=== PATIENT | male | born 1965 | race Caucasian/White ===

== ENCOUNTER 2017-01-19 10:07 | Emergency (ER) | payer MEDICARE ==
[~2017-01-19] VITALS: Ht 172.7 cm; Wt 86.0 kg
[2017-01-19] MEDS ORDERED: METHOCARBAMOL 750 MG TABLET PO ONE (11:30)
[2017-01-19] MEDS ORDERED: SODIUM CHLORIDE FLUSH 10ML SYR IVF ONE (11:30)
[2017-01-19] MEDS ORDERED: KETOROLAC 30 MG/1 ML IVPush ONE (11:30)
[2017-01-19] MEDS ORDERED: HYDROmorphone 1 MG/ML, 1ML IVPush PRN (11:30)
[2017-01-19] MEDS ORDERED: DIAZEPAM 5 MG TABLET PO ONE (11:30)
[2017-01-19] MEDS ORDERED: DIAZEPAM 5 MG TABLET ONE (11:40)
[2017-01-19] MEDS ORDERED: METHOCARBAMOL 750 MG TABLET ONE (11:40)
[2017-01-19 11:50] VITALS: BP 126/90
== END 2017-01-19 12:53 | disposition left against medical advice (07) ==
LOC: ED 10:23
DX: S39.012A Strain of muscle, fascia and tendon of lower back, initial encounter (principal); E11.9 Type 2 diabetes mellitus without complications; G89.29 Other chronic pain; M54.5 Low back pain; X50.0XXA Overexertion from strenuous movement or load, initial encounter; Y93.89 Activity, other specified; Y92.092 Bedroom in other non-institutional residence as the place of occurrence of the external cause; Y99.8 Other external cause status
CPT/HCPCS: 99284; J7512

== ENCOUNTER 2017-05-08 07:52 | Inpatient (IN) | payer MEDICARE ==
[~2017-05-08] VITALS: Ht 177.8 cm; Wt 76.1 kg
[2017-05-08] MEDS ORDERED: SODIUM CHLORIDE 0.9% 1,000ML IVBOLUS ONE ×2 (08:30→10:00)
[2017-05-08 08:54] LABS: HEMOGLOBIN 20.3 g/dL (13.7-18.0); WHITE BLOOD COUNT 40.2 x10^3/uL (3.4-10)
[2017-05-08 09:06] LABS: DIFF TOTAL CELLS COUNTED 100 CELL DIFF
[2017-05-08 09:39] LABS: VERIFY COUNTS? YES
[2017-05-08 09:56] LABS: BLOOD UREA NITROGEN 24 mg/dL (7-18)
[2017-05-08] MEDS ORDERED: SODIUM CHLORIDE 0.9%, 500ML IVBOLUS ONE (10:00)
[2017-05-08] MEDS ORDERED: CEFTRIAXONE PMX 2GM/50ML 50 ML IV SCH (10:00)
[2017-05-08 10:04] LABS: ACETAMINOPHEN < 2 mcg/mL (10-30); ASPARTATE AMINO TRANSFERASE 976 U/L (15-37)
[2017-05-08] MEDS ORDERED: SODIUM POLYSTYRENE SULFONATE ORAL SUSP ONE (10:18)
[2017-05-08] MEDS ORDERED: CEFTRIAXONE PMX 2GM/50ML 50 ML ONE (10:19)
[2017-05-08] MEDS ORDERED: DEXTROSE 50%, 50ML SYRINGE ONE (10:19)
[2017-05-08] MEDS ORDERED: CALCIUM CHLORIDE 10%, 10ML SYR ONE (10:19)
[2017-05-08] MEDS ORDERED: INSULIN REGULAR 100 UNITS/ML, 3ML VIAL ONE (10:20)
[2017-05-08] MEDS ORDERED: CALCIUM CHLORIDE 10%, 10ML SYR IVPush ONE (10:30)
[2017-05-08] MEDS ORDERED: CEFTRIAXONE PMX 2GM/50ML 50 ML IV ONE (10:30)
[2017-05-08] MEDS ORDERED: INSULIN REGULAR 100 UNITS/ML, 3ML VIAL IVPush ONE (10:30)
[2017-05-08] MEDS ORDERED: SODIUM POLY SULFONATE UDC 15 GM/60 ML PO ONE (10:30)
[2017-05-08] MEDS ORDERED: DEXTROSE 50%, 50ML SYRINGE IVPush ONE (10:30)
[2017-05-08] MEDS ORDERED: SODIUM BICARBONATE 8.4% 150 MEQ in DEXTROSE 5% 1,000 ML IV ONE (10:44)
[2017-05-08 11:20] VITALS: BP 155/101
[2017-05-08 11:44] LABS: ABG COLLECTION SITE RIGHT RADIAL; COLLATERAL CIRCULATION TESTING NORMAL
[2017-05-08 11:53] LABS: HEMATOCRIT 49.3 % (39.2-51.8); HEMOGLOBIN 16.9 g/dL (13.7-18.0); WHITE BLOOD COUNT 31.6 x10^3/uL (3.4-10)
[2017-05-08 11:55] LABS: BLOOD UREA NITROGEN 24 mg/dL (7-18)
[2017-05-08 12:14] LABS: DIFF TOTAL CELLS COUNTED 100 CELL DIFF
[2017-05-08 12:16] LABS: VERIFY COUNTS? YES
[2017-05-08] MEDS ORDERED: CALCIUM GLUCONATE 4.6 MEQ in SODIUM CHLORIDE 0.9% 50 ML IV ONE (12:30)
[2017-05-08 12:41] LABS: DAU SCREEN DISCLAIMER
[2017-05-08] MEDS ORDERED: CYCL5TAB PO (13:39)
[2017-05-08] MEDS ORDERED: MORP30TA3 PO (14:08)
[2017-05-08] MEDS ORDERED: QUET100T PO (14:08)
[2017-05-08] MEDS ORDERED: CLIN300C8 PO (14:08)
[2017-05-08] MEDS ORDERED: FENO160T PO (14:08)
[2017-05-08] MEDS ORDERED: DIAZ5TAB4 PO (14:08)
[2017-05-08] MEDS ORDERED: ACET-709 PO (14:08)
[2017-05-08] MEDS ORDERED: TRAZ150T62 PO (14:08)
[2017-05-08] MEDS ORDERED: VALA500T PO (14:08)
[2017-05-08] MEDS ORDERED: CITA40TA5 PO (14:08)
[2017-05-08] MEDS ORDERED: ATOR-2 PO (14:08)
[2017-05-08] MEDS ORDERED: DEXTROSE 4 GM TAB.CHEW PO PRN (15:00)
[2017-05-08] MEDS ORDERED: DEXTROSE 50%, 50ML SYRINGE IVPush PRN (15:00)
[2017-05-08] MEDS ORDERED: GLUCAGON 1 MG IM PRN (15:00)
[2017-05-08 15:32] VITALS: BP 141/93
[2017-05-08 15:37] LABS: BLOOD UREA NITROGEN 29 mg/dL (7-18)
[2017-05-08 15:45] LABS: ASPARTATE AMINO TRANSFERASE 1448 U/L (15-37)
[2017-05-08 15:50] LABS: ABG COLLECTION SITE LEFT RADIAL; COLLATERAL CIRCULATION TESTING NORMAL
[2017-05-08] MEDS: INSULIN ASPART 100 UNITS/ML, PEN SQ-INSULIN SCH ×2 (16:52→20:31)
[2017-05-08 20:15] VITALS: BP 139/96
[2017-05-08] MEDS: METRONIDAZOLE PMX 500MG/100ML 100 ML IV SCH (20:30)
[2017-05-08] MEDS: SODIUM CHLORIDE FLUSH 10ML SYR IVF SCH (20:41)
[2017-05-09 02:27] VITALS: BP 142/97
[2017-05-09 03:19] LABS: HEMATOCRIT 54.7 % (39.2-51.8); HEMOGLOBIN 18.5 g/dL (13.7-18.0); WHITE BLOOD COUNT 28.1 x10^3/uL (3.4-10)
[2017-05-09 03:29] LABS: BLOOD UREA NITROGEN 27 mg/dL (7-18)
[2017-05-09 03:43] LABS: DIFF TOTAL CELLS COUNTED 100 CELL DIFF
[2017-05-09 03:44] LABS: VERIFY COUNTS? YES
[2017-05-09 03:55] LABS: ASPARTATE AMINO TRANSFERASE 1488 U/L (15-37)
[2017-05-09] MEDS: METRONIDAZOLE PMX 500MG/100ML 100 ML IV SCH ×3 (04:03→21:02)
[2017-05-09 06:32] VITALS: BP 153/99
[2017-05-09] MEDS ORDERED: SODIUM BICARBONATE 8.4% 150 MEQ in DEXTROSE 5% 1,000 ML IV SCH (08:30)
[2017-05-09] MEDS: INSULIN ASPART 100 UNITS/ML, PEN SQ-INSULIN SCH ×4 (08:44→21:02)
[2017-05-09] MEDS: SODIUM CHLORIDE FLUSH 10ML SYR IVF SCH ×2 (09:00→21:02)
[2017-05-09] MEDS: ERGOCALCIFEROL 50,000 UNIT CAPSULE PO SCH (09:00)
[2017-05-09] MEDS ORDERED: D5%-0.9% NACL 1,000 ML IV SCH (09:30)
[2017-05-09 10:05] LABS: HEP B SURF. AB < 3.1 mIU/mL (0.0-10.0)
[2017-05-09] MEDS ORDERED: CEFTRIAXONE PMX 1GM/50ML 50 ML IV SCH (10:30)
[2017-05-09] MEDS: HEPARIN 5,000 UNITS/ML, 1ML SQ SCH ×2 (13:35→21:01)
[2017-05-09] MEDS: D5%-0.45% NACL 1,000 ML IV SCH (13:35)
[2017-05-09] MEDS: CEFTRIAXONE 1,000 MG in SODIUM CHLORIDE 0.9% 50 ML IVPB SCH (13:35)
[2017-05-09 14:25] VITALS: BP 147/95
[2017-05-09] MEDS: NICOTINE 14MG/24 HR PATCH.TD24 TD SCH (14:34)
[2017-05-09 17:36] LABS: BLOOD UREA NITROGEN 24 mg/dL (7-18)
[2017-05-09 19:30] VITALS: BP 139/93
[2017-05-10 00:11] VITALS: BP 150/98
[2017-05-10] MEDS: HEPARIN 5,000 UNITS/ML, 1ML SQ SCH ×4 (04:10→22:48)
[2017-05-10] MEDS: METRONIDAZOLE PMX 500MG/100ML 100 ML IV SCH ×2 (04:10→17:40)
[2017-05-10 04:17] LABS: HEMATOCRIT 48.3 % (39.2-51.8); HEMOGLOBIN 16.5 g/dL (13.7-18.0); WHITE BLOOD COUNT 21.9 x10^3/uL (3.4-10)
[2017-05-10 04:26] LABS: BLOOD UREA NITROGEN 34 mg/dL (7-18)
[2017-05-10 04:52] LABS: ASPARTATE AMINO TRANSFERASE 1009 U/L (15-37)
[2017-05-10 06:40] VITALS: BP 159/107
[2017-05-10] MEDS: D5%-0.45% NACL 1,000 ML IV SCH (07:38)
[2017-05-10] MEDS: SODIUM CHLORIDE FLUSH 10ML SYR IVF SCH ×2 (08:17→22:48)
[2017-05-10] MEDS: INSULIN ASPART 100 UNITS/ML, PEN SQ-INSULIN SCH ×3 (08:17→16:00)
[2017-05-10] MEDS ORDERED: D5%-0.9% NACL 1,000 ML IV SCH (09:30)
[2017-05-10] MEDS: NICOTINE 14MG/24 HR PATCH.TD24 TD SCH (16:58)
[2017-05-10] MEDS: CEFTRIAXONE 1,000 MG in SODIUM CHLORIDE 0.9% 50 ML IVPB SCH (16:58)
[2017-05-10 18:38] VITALS: BP 158/113
[2017-05-10] MEDS ORDERED: INSULIN DETEMIR 100 UNITS/ML, PEN SQ-INSULIN SCH (21:00)
[2017-05-11 00:36] VITALS: BP 161/98
[2017-05-11] MEDS: METRONIDAZOLE PMX 500MG/100ML 100 ML IV SCH ×3 (01:33→18:31)
[2017-05-11] MEDS: D5%-0.45% NACL 1,000 ML IV SCH (05:21)
[2017-05-11] MEDS: HEPARIN 5,000 UNITS/ML, 1ML SQ SCH ×3 (05:21→22:37)
[2017-05-11 05:37] LABS: BLOOD UREA NITROGEN 39 mg/dL (7-18)
[2017-05-11 05:38] LABS: HEMOGLOBIN 14.6 g/dL (13.7-18.0); WHITE BLOOD COUNT 16.5 x10^3/uL (3.4-10)
[2017-05-11 06:08] LABS: ASPARTATE AMINO TRANSFERASE 831 U/L (15-37)
[2017-05-11 06:34] VITALS: BP 151/95
[2017-05-11] MEDS: SODIUM CHLORIDE FLUSH 10ML SYR IVF SCH ×2 (09:19→22:37)
[2017-05-11] MEDS: INSULIN ASPART 100 UNITS/ML, PEN SQ-INSULIN SCH ×4 (09:19→21:00)
[2017-05-11] MEDS ORDERED: LORazepam 2 MG/ML, 1ML IV PRN ×2 (11:00)
[2017-05-11 12:31] VITALS: BP 164/99
[2017-05-11] MEDS: NICOTINE 14MG/24 HR PATCH.TD24 TD SCH (15:29)
[2017-05-11] MEDS: CEFTRIAXONE 1,000 MG in SODIUM CHLORIDE 0.9% 50 ML IVPB SCH (17:21)
[2017-05-11 18:32] VITALS: BP 173/96
[2017-05-11] MEDS ORDERED: MAALOX/HYOSCYAMINE/LIDOCAINE 45 ML BTL PO ONE (22:00)
[2017-05-12] MEDS: METRONIDAZOLE PMX 500MG/100ML 100 ML IV SCH ×2 (00:36→08:19)
[2017-05-12 01:01] VITALS: BP 152/90
[2017-05-12 03:24] LABS: HEMATOCRIT 39.2 % (39.2-51.8); HEMOGLOBIN 13.5 g/dL (13.7-18.0); WHITE BLOOD COUNT 11.1 x10^3/uL (3.4-10)
[2017-05-12] MEDS: LORazepam 2 MG/ML, 1ML IV PRN ×4 (03:33→17:31)
[2017-05-12 03:35] LABS: BLOOD UREA NITROGEN 63 mg/dL (7-18)
[2017-05-12 04:03] LABS: ASPARTATE AMINO TRANSFERASE 1266 U/L (15-37)
[2017-05-12] MEDS: HEPARIN 5,000 UNITS/ML, 1ML SQ SCH ×3 (06:19→22:30)
[2017-05-12 06:42] VITALS: BP 169/97
[2017-05-12] MEDS: INSULIN ASPART 100 UNITS/ML, PEN SQ-INSULIN SCH ×4 (07:00→20:24)
[2017-05-12] MEDS: SODIUM CHLORIDE FLUSH 10ML SYR IVF SCH (08:20)
[2017-05-12] MEDS: ERGOCALCIFEROL 50,000 UNIT CAPSULE PO SCH (08:21)
[2017-05-12] MEDS ORDERED: MAGNESIUM CITRATE 300ML ORAL SOL PO PRN (12:00)
[2017-05-12 12:38] VITALS: BP 172/104
[2017-05-12] MEDS: NICOTINE 14MG/24 HR PATCH.TD24 TD SCH (12:49)
[2017-05-12] MEDS: AMLODIPINE 2.5 MG TABLET PO SCH (17:31)
[2017-05-12 19:26] VITALS: BP 159/100
[2017-05-13] MEDS: LORazepam 2 MG/ML, 1ML IV PRN ×3 (01:15→13:33)
[2017-05-13] MEDS: SODIUM CHLORIDE FLUSH 10ML SYR IVF SCH ×3 (01:15→21:37)
[2017-05-13 02:00] VITALS: BP 162/89
[2017-05-13 05:00] LABS: HEMATOCRIT 37.1 % (39.2-51.8); HEMOGLOBIN 12.7 g/dL (13.7-18.0); WHITE BLOOD COUNT 9.5 x10^3/uL (3.4-10)
[2017-05-13 05:03] LABS: ASPARTATE AMINO TRANSFERASE 739 U/L (15-37); BLOOD UREA NITROGEN 44 mg/dL (7-18)
[2017-05-13] MEDS: HEPARIN 5,000 UNITS/ML, 1ML SQ SCH ×3 (05:21→21:36)
[2017-05-13 06:52] VITALS: BP 160/95
[2017-05-13] MEDS: INSULIN ASPART 100 UNITS/ML, PEN SQ-INSULIN SCH ×4 (07:00→21:37)
[2017-05-13] MEDS: AMLODIPINE 2.5 MG TABLET PO SCH ×2 (09:00→15:31)
[2017-05-13] MEDS ORDERED: DIPHENHYDRAMINE 50 MG/ML, 1ML ONE (11:15)
[2017-05-13] MEDS ORDERED: DIPHENHYDRAMINE 50 MG/ML, 1ML IVPush ONE (11:30)
[2017-05-13 12:29] VITALS: BP 173/111
[2017-05-13] MEDS: NICOTINE 14MG/24 HR PATCH.TD24 TD SCH (13:33)
[2017-05-13] MEDS: BISACODYL 10 MG SUPP PR PRN (18:15)
[2017-05-13 20:00] VITALS: BP 146/91
[2017-05-14] MEDS: LORazepam 2 MG/ML, 1ML IV PRN ×3 (00:38→23:39)
[2017-05-14 02:00] VITALS: BP 158/92
[2017-05-14] MEDS: HEPARIN 5,000 UNITS/ML, 1ML SQ SCH ×3 (05:32→20:50)
[2017-05-14 05:41] LABS: HEMATOCRIT 35.3 % (39.2-51.8); HEMOGLOBIN 12.1 g/dL (13.7-18.0); WHITE BLOOD COUNT 9.4 x10^3/uL (3.4-10)
[2017-05-14 06:10] LABS: ASPARTATE AMINO TRANSFERASE 475 U/L (15-37); BLOOD UREA NITROGEN 37 mg/dL (7-18)
[2017-05-14 06:37] VITALS: BP 157/88
[2017-05-14] MEDS: INSULIN ASPART 100 UNITS/ML, PEN SQ-INSULIN SCH ×4 (07:00→20:43)
[2017-05-14] MEDS: SODIUM CHLORIDE FLUSH 10ML SYR IVF SCH ×2 (09:00→20:50)
[2017-05-14 12:25] VITALS: BP 147/85
[2017-05-14] MEDS: NICOTINE 14MG/24 HR PATCH.TD24 TD SCH (13:14)
[2017-05-14 20:54] VITALS: BP 177/92
[2017-05-15 02:00] VITALS: BP 168/100
[2017-05-15 05:39] LABS: HEMATOCRIT 34.2 % (39.2-51.8); HEMOGLOBIN 11.8 g/dL (13.7-18.0); WHITE BLOOD COUNT 9.7 x10^3/uL (3.4-10)
[2017-05-15] MEDS: HEPARIN 5,000 UNITS/ML, 1ML SQ SCH ×3 (05:57→22:03)
[2017-05-15 06:06] LABS: ASPARTATE AMINO TRANSFERASE 346 U/L (15-37); BLOOD UREA NITROGEN 34 mg/dL (7-18)
[2017-05-15] MEDS: INSULIN ASPART 100 UNITS/ML, PEN SQ-INSULIN SCH ×4 (07:22→21:00)
[2017-05-15] MEDS: LORazepam 2 MG/ML, 1ML IV PRN ×3 (07:47→16:00)
[2017-05-15] MEDS: SODIUM CHLORIDE FLUSH 10ML SYR IVF SCH ×2 (08:56→22:02)
[2017-05-15] MEDS: AMLODIPINE 2.5 MG TABLET PO SCH (08:56)
[2017-05-15 12:10] VITALS: BP 155/92
[2017-05-15] MEDS: NICOTINE 14MG/24 HR PATCH.TD24 TD SCH (16:23)
[2017-05-15 19:28] VITALS: BP 176/94
[2017-05-15] MEDS: LORazepam 2 MG/ML, 1ML IVPush PRN (23:31)
[2017-05-16 00:46] VITALS: BP 170/106
[2017-05-16 00:53] VITALS: BP 169/99
[2017-05-16] MEDS: LORazepam 2 MG/ML, 1ML IVPush PRN ×3 (05:15→20:40)
[2017-05-16 05:37] LABS: HEMATOCRIT 32.6 % (39.2-51.8); HEMOGLOBIN 11.2 g/dL (13.7-18.0); WHITE BLOOD COUNT 8.7 x10^3/uL (3.4-10)
[2017-05-16] MEDS: HEPARIN 5,000 UNITS/ML, 1ML SQ SCH ×2 (05:41→15:31)
[2017-05-16 05:42] LABS: ASPARTATE AMINO TRANSFERASE 193 U/L (15-37); BLOOD UREA NITROGEN 30 mg/dL (7-18)
[2017-05-16] MEDS: INSULIN ASPART 100 UNITS/ML, PEN SQ-INSULIN SCH ×4 (07:00→21:00)
[2017-05-16] MEDS ORDERED: DIPHENHYDRAMINE 25 MG CAPSULE ONE ×2 (07:33→23:50)
[2017-05-16] MEDS: DIPHENHYDRAMINE 50 MG CAPSULE PO PRN ×2 (07:35→15:31)
[2017-05-16] MEDS: SODIUM CHLORIDE FLUSH 10ML SYR IVF SCH ×2 (07:39→20:40)
[2017-05-16] MEDS: ERGOCALCIFEROL 50,000 UNIT CAPSULE PO SCH (07:42)
[2017-05-16 07:43] VITALS: BP 162/96
[2017-05-16] MEDS: AMLODIPINE 2.5 MG TABLET PO SCH (12:35)
[2017-05-16] MEDS: NICOTINE 14MG/24 HR PATCH.TD24 TD SCH (12:35)
[2017-05-16 14:45] VITALS: BP 161/101
[2017-05-16 19:01] VITALS: BP 176/95
[2017-05-16] MEDS ORDERED: LORazepam 1MG TABLET ONE (23:50)
[2017-05-17 00:46] VITALS: BP 160/92
[2017-05-17] MEDS: DIPHENHYDRAMINE 50 MG CAPSULE PO PRN ×2 (00:50→15:29)
[2017-05-17] MEDS: LORazepam 2 MG/ML, 1ML IVPush PRN ×4 (00:50→22:47)
[2017-05-17] MEDS: morphine SULFATE 10 MG/ML, 1ML IVPush PRN ×7 (02:19→23:36)
[2017-05-17 06:20] LABS: HEMATOCRIT 31.6 % (39.2-51.8); WHITE BLOOD COUNT 9.2 x10^3/uL (3.4-10)
[2017-05-17 06:26] LABS: ASPARTATE AMINO TRANSFERASE 147 U/L (15-37); BLOOD UREA NITROGEN 27 mg/dL (7-18)
[2017-05-17] MEDS: INSULIN ASPART 100 UNITS/ML, PEN SQ-INSULIN SCH ×4 (07:00→20:25)
[2017-05-17 07:14] VITALS: BP 165/98
[2017-05-17] MEDS: HEPARIN 5,000 UNITS/ML, 1ML SQ SCH ×3 (08:00→16:55)
[2017-05-17] MEDS: AMLODIPINE 2.5 MG TABLET PO SCH (09:00)
[2017-05-17] MEDS: SODIUM CHLORIDE FLUSH 10ML SYR IVF SCH ×2 (09:00→20:19)
[2017-05-17] MEDS: BISACODYL 10 MG SUPP PR PRN (12:03)
[2017-05-17 13:24] VITALS: BP 159/82
[2017-05-17] MEDS: NICOTINE 14MG/24 HR PATCH.TD24 TD SCH (13:26)
[2017-05-17] MEDS ORDERED: HALOPERIDOL 5 MG/ML IV ONE (18:30)
[2017-05-18 01:49] VITALS: BP 174/107
[2017-05-18 05:08] LABS: HEMATOCRIT 34.1 % (39.2-51.8); HEMOGLOBIN 11.7 g/dL (13.7-18.0); WHITE BLOOD COUNT 10.3 x10^3/uL (3.4-10)
[2017-05-18 05:13] LABS: BLOOD UREA NITROGEN 30 mg/dL (7-18)
[2017-05-18 05:33] LABS: ASPARTATE AMINO TRANSFERASE 109 U/L (15-37)
[2017-05-18] MEDS: INSULIN ASPART 100 UNITS/ML, PEN SQ-INSULIN SCH ×4 (07:00→21:34)
[2017-05-18 08:45] VITALS: BP 146/100
[2017-05-18] MEDS: HEPARIN 5,000 UNITS/ML, 1ML SQ SCH ×3 (09:04→16:00)
[2017-05-18] MEDS: SODIUM CHLORIDE FLUSH 10ML SYR IVF SCH ×2 (09:05→21:34)
[2017-05-18] MEDS: DIPHENHYDRAMINE 50 MG CAPSULE PO PRN ×2 (10:07→12:52)
[2017-05-18] MEDS: morphine SULFATE 10 MG/ML, 1ML IVPush PRN ×3 (10:07→21:33)
[2017-05-18] MEDS: LORazepam 2 MG/ML, 1ML IVPush PRN (13:49)
[2017-05-18] MEDS: SODIUM CHLORIDE 0.9% 1,000 ML IV SCH (15:12)
[2017-05-18] MEDS: AMLODIPINE 2.5 MG TABLET PO SCH (15:12)
[2017-05-18] MEDS: NICOTINE 14MG/24 HR PATCH.TD24 TD SCH (15:12)
[2017-05-18 16:09] VITALS: BP 150/92
[2017-05-18 21:32] VITALS: BP_SYST 180; BP_SYST 190; BP_DIAS 109; BP_DIAS 117
[2017-05-18] MEDS: ENALAPRILAT 1.25 MG/ML, 2ML IV PRN (21:34)
[2017-05-19] MEDS: HEPARIN 5,000 UNITS/ML, 1ML SQ SCH ×3 (01:10→18:09)
[2017-05-19] MEDS: LORazepam 2 MG/ML, 1ML IVPush PRN ×3 (02:44→22:32)
[2017-05-19 02:48] VITALS: BP 183/103
[2017-05-19] MEDS: ENALAPRILAT 1.25 MG/ML, 2ML IV PRN (02:52)
[2017-05-19] MEDS: morphine SULFATE 10 MG/ML, 1ML IVPush PRN ×3 (03:40→20:10)
[2017-05-19] MEDS: SODIUM CHLORIDE 0.9% 1,000 ML IV SCH ×2 (04:20→22:30)
[2017-05-19 05:39] LABS: BLOOD UREA NITROGEN 23 mg/dL (7-18); HEMATOCRIT 27.1 % (39.2-51.8); HEMOGLOBIN 9.6 g/dL (13.7-18.0); WHITE BLOOD COUNT 11.2 x10^3/uL (3.4-10)
[2017-05-19 06:46] VITALS: BP 150/84
[2017-05-19] MEDS: INSULIN ASPART 100 UNITS/ML, PEN SQ-INSULIN SCH ×4 (07:00→19:56)
[2017-05-19 08:16] LABS: ASPARTATE AMINO TRANSFERASE 91 U/L (15-37)
[2017-05-19] MEDS: SODIUM CHLORIDE FLUSH 10ML SYR IVF SCH ×2 (08:44→20:11)
[2017-05-19] MEDS: ERGOCALCIFEROL 50,000 UNIT CAPSULE PO SCH (09:07)
[2017-05-19] MEDS: AMLODIPINE 2.5 MG TABLET PO SCH (09:07)
[2017-05-19 12:14] VITALS: BP 147/85
[2017-05-19] MEDS: NICOTINE 14MG/24 HR PATCH.TD24 TD SCH (14:59)
[2017-05-19 20:00] VITALS: BP 156/82
[2017-05-19] MEDS: DIPHENHYDRAMINE 50 MG CAPSULE PO PRN (22:32)
[2017-05-20 02:00] VITALS: BP 150/89
[2017-05-20] MEDS: morphine SULFATE 10 MG/ML, 1ML IVPush PRN ×5 (04:04→23:49)
[2017-05-20] MEDS: HEPARIN 5,000 UNITS/ML, 1ML SQ SCH ×3 (04:22→20:29)
[2017-05-20 04:30] LABS: HEMATOCRIT 26.2 % (39.2-51.8); WHITE BLOOD COUNT 9.9 x10^3/uL (3.4-10)
[2017-05-20 05:03] LABS: ASPARTATE AMINO TRANSFERASE 58 U/L (15-37); BLOOD UREA NITROGEN 30 mg/dL (7-18)
[2017-05-20 06:40] VITALS: BP 155/89
[2017-05-20 06:42] VITALS: BP 113/66
[2017-05-20] MEDS: INSULIN ASPART 100 UNITS/ML, PEN SQ-INSULIN SCH ×4 (07:00→20:29)
[2017-05-20] MEDS: SODIUM CHLORIDE FLUSH 10ML SYR IVF SCH ×2 (09:00→20:29)
[2017-05-20] MEDS: AMLODIPINE 5 MG TABLET PO SCH (10:06)
[2017-05-20 12:04] VITALS: BP 158/93
[2017-05-20] MEDS: SODIUM CHLORIDE 0.9% 1,000 ML IV SCH (13:13)
[2017-05-20] MEDS: NICOTINE 14MG/24 HR PATCH.TD24 TD SCH (15:02)
[2017-05-20 20:00] VITALS: BP 142/76
[2017-05-21 02:00] VITALS: BP 158/92
[2017-05-21] MEDS: SODIUM CHLORIDE 0.9% 1,000 ML IV SCH (05:07)
[2017-05-21] MEDS: HEPARIN 5,000 UNITS/ML, 1ML SQ SCH ×3 (05:07→21:45)
[2017-05-21 05:41] LABS: HEMATOCRIT 26.2 % (39.2-51.8); HEMOGLOBIN 9.3 g/dL (13.7-18.0); WHITE BLOOD COUNT 11.4 x10^3/uL (3.4-10)
[2017-05-21 05:43] LABS: ASPARTATE AMINO TRANSFERASE 56 U/L (15-37); BLOOD UREA NITROGEN 22 mg/dL (7-18)
[2017-05-21] MEDS: INSULIN ASPART 100 UNITS/ML, PEN SQ-INSULIN SCH ×7 (07:00→21:00)
[2017-05-21 07:02] VITALS: BP 169/90
[2017-05-21] MEDS: SODIUM CHLORIDE FLUSH 10ML SYR IVF SCH ×2 (09:00→21:45)
[2017-05-21] MEDS: morphine SULFATE 10 MG/ML, 1ML IVPush PRN ×2 (09:46→14:14)
[2017-05-21] MEDS: AMLODIPINE 5 MG TABLET PO SCH (09:46)
[2017-05-21 10:56] VITALS: BP 149/85
[2017-05-21] MEDS: LORazepam 2 MG/ML, 1ML IVPush PRN ×3 (12:15→19:39)
[2017-05-21] MEDS ORDERED: ALBUTEROL SULFATE 2.5 MG/3 ML NPPB PRN (12:30)
[2017-05-21] MEDS ORDERED: ALBUTEROL SULFATE 2.5 MG/3 ML ONE (12:49)
[2017-05-21] MEDS: NICOTINE 14MG/24 HR PATCH.TD24 TD SCH (13:10)
[2017-05-21 13:16] LABS: IS PT STATUS REG ER OR PRE ER? NO
[2017-05-21] MEDS ORDERED: OMNIPAQUE 350 MG/ML, 100ML BOTTLE ONE (14:43)
[2017-05-21 16:00] VITALS: BP 142/92
[2017-05-21 20:00] VITALS: BP 149/86
[2017-05-21] MEDS ORDERED: HALOPERIDOL 5 MG/ML IV ONE (20:30)
[2017-05-22] MEDS: LORazepam 2 MG/ML, 1ML IVPush PRN (01:36)
[2017-05-22 02:00] VITALS: BP 163/89
[2017-05-22] MEDS: morphine SULFATE 10 MG/ML, 1ML IVPush PRN (03:55)
[2017-05-22] MEDS ORDERED: HALOPERIDOL 5 MG/ML IV PRN (05:00)
[2017-05-22 05:09] LABS: HEMATOCRIT 26.1 % (39.2-51.8); HEMOGLOBIN 9.1 g/dL (13.7-18.0); WHITE BLOOD COUNT 10.7 x10^3/uL (3.4-10)
[2017-05-22] MEDS: HEPARIN 5,000 UNITS/ML, 1ML SQ SCH ×3 (05:16→20:49)
[2017-05-22 05:35] LABS: BLOOD UREA NITROGEN 28 mg/dL (7-18)
[2017-05-22 05:41] LABS: ASPARTATE AMINO TRANSFERASE 50 U/L (15-37)
[2017-05-22 06:34] VITALS: BP 138/83
[2017-05-22] MEDS: INSULIN ASPART 100 UNITS/ML, PEN SQ-INSULIN SCH ×4 (07:00→20:49)
[2017-05-22] MEDS: SODIUM CHLORIDE FLUSH 10ML SYR IVF SCH ×2 (09:50→20:48)
[2017-05-22] MEDS: FLUTICASONE NASAL SPRAY 16GM NAS SCH ×2 (09:50→20:48)
[2017-05-22] MEDS ORDERED: CATHFLO-ALTEPLASE 2 MG/2 ML CATHFLUSH ONE (11:00)
[2017-05-22] MEDS: NICOTINE 14MG/24 HR PATCH.TD24 TD SCH (12:25)
[2017-05-22] MEDS: DIPHENHYDRAMINE 50 MG CAPSULE PO PRN (14:13)
[2017-05-22 14:55] VITALS: BP 155/89
[2017-05-22] MEDS ORDERED: METOPROLOL TARTRATE 50 MG TABLET ONE (15:14)
[2017-05-22] MEDS: HALOPERIDOL 5 MG/ML IM PRN (15:18)
[2017-05-22] MEDS: METOPROLOL TARTRATE 50 MG TABLET PO SCH ×2 (15:18→20:48)
[2017-05-22] MEDS: ACETAMINOPHEN 325 MG TABLET PO PRN (17:09)
[2017-05-22] MEDS: FLUOXETINE 10 MG CAP PO SCH (17:50)
[2017-05-22] MEDS: OLANZAPINE 5 MG TABLET PO SCH (17:50)
[2017-05-22] MEDS: AMLODIPINE 5 MG TABLET PO SCH (18:21)
[2017-05-22 21:29] VITALS: BP 119/67
[2017-05-22] MEDS ORDERED: HYDROcodone/APAP 5/325 TABLET PO ONE (23:00)
[2017-05-23] MEDS: HALOPERIDOL 5 MG/ML IM PRN (00:15)
[2017-05-23] MEDS: FLUOXETINE 10 MG CAP PO SCH ×3 (00:56→15:55)
[2017-05-23] MEDS: OLANZAPINE 5 MG TABLET PO SCH ×3 (00:56→15:55)
[2017-05-23 02:00] VITALS: BP 158/92
[2017-05-23 03:27] LABS: HEMATOCRIT 24.9 % (39.2-51.8); HEMOGLOBIN 8.5 g/dL (13.7-18.0); WHITE BLOOD COUNT 9.3 x10^3/uL (3.4-10)
[2017-05-23 03:39] LABS: ASPARTATE AMINO TRANSFERASE 51 U/L (15-37); BLOOD UREA NITROGEN 21 mg/dL (7-18)
[2017-05-23 05:42] LABS: FERRITIN 967.9 ng/mL (26-388)
[2017-05-23] MEDS: DARBEPOETIN 60 MCG/ML SQ SCH (06:20)
[2017-05-23] MEDS: HEPARIN 5,000 UNITS/ML, 1ML SQ SCH ×3 (06:21→20:43)
[2017-05-23] MEDS: METOPROLOL TARTRATE 50 MG TABLET PO SCH ×2 (06:21→17:37)
[2017-05-23] MEDS: HYDROcodone/APAP 10/325 MG TABLET PO PRN ×2 (06:39→15:55)
[2017-05-23 06:55] VITALS: BP 153/87
[2017-05-23] MEDS: INSULIN ASPART 100 UNITS/ML, PEN SQ-INSULIN SCH ×4 (07:00→20:44)
[2017-05-23] MEDS: FLUTICASONE NASAL SPRAY 16GM NAS SCH ×2 (07:57→20:44)
[2017-05-23] MEDS: ERGOCALCIFEROL 50,000 UNIT CAPSULE PO SCH (07:57)
[2017-05-23] MEDS: SODIUM CHLORIDE FLUSH 10ML SYR IVF SCH ×2 (07:57→20:44)
[2017-05-23] MEDS: AMLODIPINE 5 MG TABLET PO SCH (07:57)
[2017-05-23] MEDS: NICOTINE 14MG/24 HR PATCH.TD24 TD SCH (12:51)
[2017-05-23 15:49] VITALS: BP 146/80
[2017-05-23 18:45] VITALS: BP 138/80
[2017-05-24 00:58] VITALS: BP 159/89
[2017-05-24] MEDS: HEPARIN 5,000 UNITS/ML, 1ML SQ SCH ×3 (05:00→20:31)
[2017-05-24 05:44] LABS: BLOOD UREA NITROGEN 33 mg/dL (7-18)
[2017-05-24] MEDS: METOPROLOL TARTRATE 50 MG TABLET PO SCH ×2 (06:27→18:08)
[2017-05-24] MEDS: INSULIN ASPART 100 UNITS/ML, PEN SQ-INSULIN SCH ×4 (07:00→20:24)
[2017-05-24 07:46] VITALS: BP 148/90
[2017-05-24] MEDS: OLANZAPINE 5 MG TABLET PO SCH ×3 (08:00→15:13)
[2017-05-24] MEDS: FLUOXETINE 10 MG CAP PO SCH ×3 (08:00→15:13)
[2017-05-24] MEDS: AMLODIPINE 5 MG TABLET PO SCH (08:53)
[2017-05-24] MEDS: FLUTICASONE NASAL SPRAY 16GM NAS SCH ×2 (08:54→20:31)
[2017-05-24] MEDS: SODIUM CHLORIDE FLUSH 10ML SYR IVF SCH ×2 (08:55→20:31)
[2017-05-24] MEDS ORDERED: ALBUTEROL/IPRATROPIUM 2.5MG/0.5MG, 3 ML ONE (09:44)
[2017-05-24] MEDS ORDERED: ALBUTEROL/IPRATROPIUM 2.5MG/0.5MG, 3 ML NPPB PRN (10:00)
[2017-05-24] MEDS ORDERED: LORazepam 0.5MG TABLET PO PRN ×2 (11:30→19:00)
[2017-05-24] MEDS: HALOPERIDOL 5 MG/ML IM PRN (11:50)
[2017-05-24] MEDS: HYDROcodone/APAP 10/325 MG TABLET PO PRN (11:55)
[2017-05-24] MEDS: ACETAMINOPHEN 325 MG TABLET PO PRN (15:10)
[2017-05-24] MEDS: NICOTINE 14MG/24 HR PATCH.TD24 TD SCH (15:12)
[2017-05-24] MEDS ORDERED: ENALAPRILAT 1.25 MG/ML, 2ML IV PRN (19:00)
[2017-05-24] MEDS ORDERED: DEXTROSE 4 GM TAB.CHEW PO PRN (19:00)
[2017-05-24] MEDS ORDERED: DEXTROSE 50%, 50ML SYRINGE IVPush PRN (19:00)
[2017-05-24 20:17] VITALS: BP 153/69
[2017-05-25] MEDS: FLUOXETINE 10 MG CAP PO SCH ×3 (00:05→16:22)
[2017-05-25] MEDS: OLANZAPINE 5 MG TABLET PO SCH ×3 (00:05→16:22)
[2017-05-25 01:02] VITALS: BP 144/86
[2017-05-25] MEDS: METOPROLOL TARTRATE 50 MG TABLET PO SCH ×2 (05:12→17:44)
[2017-05-25] MEDS: HEPARIN 5,000 UNITS/ML, 1ML SQ SCH ×3 (05:12→21:45)
[2017-05-25 05:42] LABS: BLOOD UREA NITROGEN 28 mg/dL (7-18)
[2017-05-25 05:46] LABS: ASPARTATE AMINO TRANSFERASE 45 U/L (15-37); TOTAL IRON BINDING CAPACITY 170 mcg/dL (250-450)
[2017-05-25 06:00] LABS: HEMATOCRIT 24.9 % (39.2-51.8); HEMOGLOBIN 8.7 g/dL (13.7-18.0); WHITE BLOOD COUNT 9.2 x10^3/uL (3.4-10)
[2017-05-25 07:00] VITALS: BP 142/85
[2017-05-25] MEDS: INSULIN ASPART 100 UNITS/ML, PEN SQ-INSULIN SCH ×4 (07:00→21:51)
[2017-05-25] MEDS: AMLODIPINE 5 MG TABLET PO SCH (08:46)
[2017-05-25] MEDS: SODIUM CHLORIDE FLUSH 10ML SYR IVF SCH ×2 (08:50→21:45)
[2017-05-25] MEDS: FLUTICASONE NASAL SPRAY 16GM NAS SCH ×2 (09:34→21:44)
[2017-05-25 12:02] VITALS: BP 133/80
[2017-05-25] MEDS: NICOTINE 14MG/24 HR PATCH.TD24 TD SCH (13:47)
[2017-05-25] MEDS: FERROUS SULFATE 325 MG TABLET PO SCH (16:22)
[2017-05-25] MEDS ORDERED: ENALAPRILAT 1.25 MG/ML, 2ML IV PRN (19:30)
[2017-05-25] MEDS ORDERED: DEXTROSE 50%, 50ML SYRINGE IVPush PRN (19:30)
[2017-05-25] MEDS ORDERED: DEXTROSE 4 GM TAB.CHEW PO PRN (19:30)
[2017-05-25] MEDS ORDERED: GLUCAGON 1 MG IM PRN (19:30)
[2017-05-25] MEDS ORDERED: MAGNESIUM CITRATE 300ML ORAL SOL PO PRN (19:30)
[2017-05-25 19:36] VITALS: BP 150/90
[2017-05-25] MEDS: INSULIN DETEMIR 100 UNITS/ML, PEN SQ-INSULIN SCH (21:53)
[2017-05-26] MEDS: FLUOXETINE 10 MG CAP PO SCH ×3 (00:20→16:19)
[2017-05-26] MEDS: OLANZAPINE 5 MG TABLET PO SCH ×3 (00:20→16:19)
[2017-05-26] MEDS: HYDROcodone/APAP 10/325 MG TABLET PO PRN (00:21)
[2017-05-26 00:47] VITALS: BP 146/85
[2017-05-26 05:37] VITALS: BP 167/78
[2017-05-26] MEDS: HEPARIN 5,000 UNITS/ML, 1ML SQ SCH ×3 (05:38→20:56)
[2017-05-26] MEDS: METOPROLOL TARTRATE 50 MG TABLET PO SCH ×2 (05:38→17:24)
[2017-05-26 06:15] VITALS: BP 144/88
[2017-05-26] MEDS: INSULIN ASPART 100 UNITS/ML, PEN SQ-INSULIN SCH ×4 (07:00→20:57)
[2017-05-26] MEDS: FLUTICASONE NASAL SPRAY 16GM NAS SCH ×2 (09:06→20:55)
[2017-05-26] MEDS: FERROUS SULFATE 325 MG TABLET PO SCH ×2 (09:07→16:19)
[2017-05-26] MEDS: ERGOCALCIFEROL 50,000 UNIT CAPSULE PO SCH (09:07)
[2017-05-26] MEDS: AMLODIPINE 5 MG TABLET PO SCH (09:07)
[2017-05-26] MEDS: SODIUM CHLORIDE FLUSH 10ML SYR IVF SCH ×2 (09:08→20:56)
[2017-05-26 12:35] VITALS: BP 142/81
[2017-05-26] MEDS: NICOTINE 14MG/24 HR PATCH.TD24 TD SCH (12:44)
[2017-05-26 19:50] VITALS: BP 124/75
[2017-05-26] MEDS: INSULIN DETEMIR 100 UNITS/ML, PEN SQ-INSULIN SCH (20:57)
[2017-05-27] MEDS: FLUOXETINE 10 MG CAP PO SCH ×3 (00:30→17:32)
[2017-05-27] MEDS: OLANZAPINE 5 MG TABLET PO SCH ×3 (00:30→17:32)
[2017-05-27 02:00] VITALS: BP 154/85
[2017-05-27] MEDS: HEPARIN 5,000 UNITS/ML, 1ML SQ SCH ×3 (04:44→20:09)
[2017-05-27] MEDS: METOPROLOL TARTRATE 50 MG TABLET PO SCH ×2 (06:02→17:32)
[2017-05-27] MEDS: INSULIN ASPART 100 UNITS/ML, PEN SQ-INSULIN SCH ×4 (07:00→20:05)
[2017-05-27 07:05] VITALS: BP 143/85
[2017-05-27] MEDS: FERROUS SULFATE 325 MG TABLET PO SCH ×2 (08:09→17:32)
[2017-05-27] MEDS: FLUTICASONE NASAL SPRAY 16GM NAS SCH ×2 (08:09→20:09)
[2017-05-27] MEDS: SODIUM CHLORIDE FLUSH 10ML SYR IVF SCH ×2 (08:09→20:09)
[2017-05-27] MEDS: AMLODIPINE 5 MG TABLET PO SCH (08:10)
[2017-05-27 12:31] LABS: HEMATOCRIT 28.3 % (39.2-51.8); HEMOGLOBIN 9.8 g/dL (13.7-18.0); WHITE BLOOD COUNT 10.7 x10^3/uL (3.4-10)
[2017-05-27 12:32] LABS: ASPARTATE AMINO TRANSFERASE 48 U/L (15-37); BLOOD UREA NITROGEN 42 mg/dL (7-18)
[2017-05-27 12:43] VITALS: BP 125/75
[2017-05-27] MEDS: DIPHENHYDRAMINE 50 MG CAPSULE PO PRN (12:55)
[2017-05-27] MEDS: NICOTINE 14MG/24 HR PATCH.TD24 TD SCH (17:33)
[2017-05-27 20:00] VITALS: BP 130/74
[2017-05-27] MEDS: INSULIN DETEMIR 100 UNITS/ML, PEN SQ-INSULIN SCH (20:09)
[2017-05-28] MEDS: FLUOXETINE 10 MG CAP PO SCH ×3 (00:02→17:16)
[2017-05-28] MEDS: OLANZAPINE 5 MG TABLET PO SCH ×3 (00:02→17:16)
[2017-05-28 02:19] VITALS: BP 128/85
[2017-05-28] MEDS: HEPARIN 5,000 UNITS/ML, 1ML SQ SCH ×3 (04:30→20:55)
[2017-05-28] MEDS: METOPROLOL TARTRATE 50 MG TABLET PO SCH ×2 (04:30→17:16)
[2017-05-28 04:55] LABS: BLOOD UREA NITROGEN 29 mg/dL (7-18)
[2017-05-28 04:58] LABS: ASPARTATE AMINO TRANSFERASE 44 U/L (15-37)
[2017-05-28 05:05] LABS: HEMATOCRIT 25.4 % (39.2-51.8); HEMOGLOBIN 8.8 g/dL (13.7-18.0); WHITE BLOOD COUNT 10.3 x10^3/uL (3.4-10)
[2017-05-28] MEDS: INSULIN ASPART 100 UNITS/ML, PEN SQ-INSULIN SCH ×4 (07:00→21:00)
[2017-05-28 07:59] VITALS: BP 148/82
[2017-05-28] MEDS: FERROUS SULFATE 325 MG TABLET PO SCH ×2 (08:52→17:16)
[2017-05-28] MEDS: AMLODIPINE 5 MG TABLET PO SCH (08:52)
[2017-05-28] MEDS: SODIUM CHLORIDE FLUSH 10ML SYR IVF SCH ×2 (08:53→20:55)
[2017-05-28] MEDS: FLUTICASONE NASAL SPRAY 16GM NAS SCH ×2 (08:55→20:55)
[2017-05-28 12:55] VITALS: BP 152/67
[2017-05-28] MEDS: NICOTINE 14MG/24 HR PATCH.TD24 TD SCH (17:16)
[2017-05-28 18:23] VITALS: BP 121/77
[2017-05-28] MEDS: INSULIN DETEMIR 100 UNITS/ML, PEN SQ-INSULIN SCH (20:59)
[2017-05-29] MEDS: FLUOXETINE 10 MG CAP PO SCH ×4 (00:13→23:53)
[2017-05-29] MEDS: OLANZAPINE 5 MG TABLET PO SCH ×4 (00:13→23:53)
[2017-05-29 02:59] VITALS: BP 131/82
[2017-05-29 04:56] LABS: HEMOGLOBIN 8.4 g/dL (13.7-18.0); WHITE BLOOD COUNT 13.4 x10^3/uL (3.4-10)
[2017-05-29 05:01] LABS: BLOOD UREA NITROGEN 35 mg/dL (7-18)
[2017-05-29 05:05] LABS: ASPARTATE AMINO TRANSFERASE 40 U/L (15-37)
[2017-05-29] MEDS: HEPARIN 5,000 UNITS/ML, 1ML SQ SCH ×3 (05:25→21:30)
[2017-05-29] MEDS: METOPROLOL TARTRATE 50 MG TABLET PO SCH ×2 (05:25→17:08)
[2017-05-29 05:26] VITALS: BP 112/68
[2017-05-29] MEDS: INSULIN ASPART 100 UNITS/ML, PEN SQ-INSULIN SCH ×4 (07:00→21:00)
[2017-05-29 07:33] VITALS: BP 133/79
[2017-05-29] MEDS: FERROUS SULFATE 325 MG TABLET PO SCH ×2 (08:40→17:08)
[2017-05-29] MEDS: FLUTICASONE NASAL SPRAY 16GM NAS SCH ×2 (08:41→21:30)
[2017-05-29] MEDS: SODIUM CHLORIDE FLUSH 10ML SYR IVF SCH ×2 (08:46→21:29)
[2017-05-29] MEDS: AMLODIPINE 5 MG TABLET PO SCH (08:46)
[2017-05-29] MEDS ORDERED: LIDOCAINE 2%, 20ML ONE (12:39)
[2017-05-29 13:02] VITALS: BP 120/68
[2017-05-29] MEDS ORDERED: FLUMAZENIL 0.1 MG/1 ML, 5ML ONE (13:20)
[2017-05-29] MEDS ORDERED: FENTANYL PF 100 MCG/2ML ONE ×2 (13:20)
[2017-05-29] MEDS ORDERED: NALOXONE 1 MG/ML, 2ML ONE (13:20)
[2017-05-29] MEDS ORDERED: MIDAZOLAM 1 MG/ML, 5ML ONE (13:20)
[2017-05-29] MEDS: NICOTINE 14MG/24 HR PATCH.TD24 TD SCH (17:09)
[2017-05-29 20:42] VITALS: BP 120/72
[2017-05-29] MEDS: INSULIN DETEMIR 100 UNITS/ML, PEN SQ-INSULIN SCH (21:31)
[2017-05-29] MEDS: HYDROcodone/APAP 10/325 MG TABLET PO PRN (23:56)
[2017-05-29] MEDS: DIPHENHYDRAMINE 50 MG CAPSULE PO PRN (23:57)
[2017-05-30 02:52] VITALS: BP 122/76
[2017-05-30] MEDS: METOPROLOL TARTRATE 50 MG TABLET PO SCH ×2 (05:48→17:38)
[2017-05-30] MEDS: HEPARIN 5,000 UNITS/ML, 1ML SQ SCH ×2 (05:48→17:37)
[2017-05-30] MEDS: HYDROcodone/APAP 10/325 MG TABLET PO PRN ×2 (05:53→20:12)
[2017-05-30] MEDS: INSULIN ASPART 100 UNITS/ML, PEN SQ-INSULIN SCH ×4 (07:00→20:54)
[2017-05-30 07:41] VITALS: BP 128/74
[2017-05-30] MEDS: FLUTICASONE NASAL SPRAY 16GM NAS SCH ×2 (08:34→20:57)
[2017-05-30] MEDS: SODIUM CHLORIDE FLUSH 10ML SYR IVF SCH ×2 (08:34→20:57)
[2017-05-30] MEDS: FERROUS SULFATE 325 MG TABLET PO SCH ×2 (08:35→17:37)
[2017-05-30] MEDS: ERGOCALCIFEROL 50,000 UNIT CAPSULE PO SCH (08:35)
[2017-05-30] MEDS: FLUOXETINE 10 MG CAP PO SCH ×2 (08:35→18:11)
[2017-05-30] MEDS: AMLODIPINE 5 MG TABLET PO SCH (08:35)
[2017-05-30] MEDS: OLANZAPINE 5 MG TABLET PO SCH ×2 (08:36→18:11)
[2017-05-30] MEDS: DARBEPOETIN 60 MCG/ML SQ SCH (09:54)
[2017-05-30 13:56] VITALS: BP 145/79
[2017-05-30] MEDS: SEVELAMER 800MG TABLET PO SCH (17:38)
[2017-05-30] MEDS: NICOTINE 14MG/24 HR PATCH.TD24 TD SCH (17:39)
[2017-05-30 19:31] VITALS: BP 124/61
[2017-05-30] MEDS: INSULIN DETEMIR 100 UNITS/ML, PEN SQ-INSULIN SCH (20:58)
[2017-05-31] MEDS: OLANZAPINE 5 MG TABLET PO SCH ×3 (02:14→19:53)
[2017-05-31] MEDS: FLUOXETINE 10 MG CAP PO SCH ×3 (02:14→19:52)
[2017-05-31] MEDS: HEPARIN 5,000 UNITS/ML, 1ML SQ SCH ×3 (02:14→19:53)
[2017-05-31 02:17] VITALS: BP 144/83
[2017-05-31] MEDS: METOPROLOL TARTRATE 50 MG TABLET PO SCH ×2 (06:07→16:37)
[2017-05-31] MEDS: INSULIN ASPART 100 UNITS/ML, PEN SQ-INSULIN SCH ×4 (07:00→21:00)
[2017-05-31 07:55] VITALS: BP 118/75
[2017-05-31 08:55] LABS: BLOOD UREA NITROGEN 30 mg/dL (7-18)
[2017-05-31] MEDS: SEVELAMER 800MG TABLET PO SCH ×3 (11:35→16:37)
[2017-05-31] MEDS: FLUTICASONE NASAL SPRAY 16GM NAS SCH ×2 (11:35→21:19)
[2017-05-31] MEDS: SODIUM CHLORIDE FLUSH 10ML SYR IVF SCH ×2 (11:35→21:19)
[2017-05-31] MEDS: AMLODIPINE 5 MG TABLET PO SCH (11:36)
[2017-05-31] MEDS: FERROUS SULFATE 325 MG TABLET PO SCH ×2 (11:37→16:37)
[2017-05-31 13:24] VITALS: BP 117/75
[2017-05-31] MEDS: HYDROcodone/APAP 10/325 MG TABLET PO PRN (16:37)
[2017-05-31] MEDS: NICOTINE 14MG/24 HR PATCH.TD24 TD SCH (16:37)
[2017-05-31 18:37] VITALS: BP 122/70
[2017-05-31] MEDS: INSULIN DETEMIR 100 UNITS/ML, PEN SQ-INSULIN SCH (21:21)
[2017-06-01] MEDS: HYDROcodone/APAP 10/325 MG TABLET PO PRN (01:52)
[2017-06-01 04:33] VITALS: BP 118/71
[2017-06-01] MEDS: HEPARIN 5,000 UNITS/ML, 1ML SQ SCH ×3 (04:59→20:36)
[2017-06-01] MEDS: OLANZAPINE 5 MG TABLET PO SCH ×3 (04:59→20:37)
[2017-06-01] MEDS: FLUOXETINE 10 MG CAP PO SCH ×3 (04:59→20:37)
[2017-06-01] MEDS: METOPROLOL TARTRATE 50 MG TABLET PO SCH ×2 (06:21→17:37)
[2017-06-01 06:37] VITALS: BP 137/77
[2017-06-01] MEDS: INSULIN ASPART 100 UNITS/ML, PEN SQ-INSULIN SCH ×4 (07:00→20:19)
[2017-06-01] MEDS: FERROUS SULFATE 325 MG TABLET PO SCH ×2 (08:14→17:37)
[2017-06-01] MEDS: SEVELAMER 800MG TABLET PO SCH ×3 (08:14→17:37)
[2017-06-01] MEDS: AMLODIPINE 5 MG TABLET PO SCH (08:14)
[2017-06-01] MEDS: FLUTICASONE NASAL SPRAY 16GM NAS SCH ×2 (08:15→20:36)
[2017-06-01] MEDS: SODIUM CHLORIDE FLUSH 10ML SYR IVF SCH ×2 (08:16→20:37)
[2017-06-01 13:47] VITALS: BP 114/67
[2017-06-01 19:38] VITALS: BP 146/84
[2017-06-01] MEDS: INSULIN DETEMIR 100 UNITS/ML, PEN SQ-INSULIN SCH (20:37)
[2017-06-01] MEDS: NICOTINE 14MG/24 HR PATCH.TD24 TD SCH (20:38)
[2017-06-02 01:13] VITALS: BP 132/76
[2017-06-02] MEDS: HEPARIN 5,000 UNITS/ML, 1ML SQ SCH ×3 (04:00→20:16)
[2017-06-02] MEDS: FLUOXETINE 10 MG CAP PO SCH ×3 (06:20→20:15)
[2017-06-02] MEDS: METOPROLOL TARTRATE 50 MG TABLET PO SCH ×2 (06:20→17:38)
[2017-06-02] MEDS: OLANZAPINE 5 MG TABLET PO SCH ×3 (06:20→20:16)
[2017-06-02] MEDS: INSULIN ASPART 100 UNITS/ML, PEN SQ-INSULIN SCH ×4 (07:00→20:17)
[2017-06-02 08:07] VITALS: BP 140/85
[2017-06-02 08:24] LABS: HEMOGLOBIN 8.9 g/dL (13.7-18.0); WHITE BLOOD COUNT 9.8 x10^3/uL (3.4-10)
[2017-06-02 08:34] LABS: BLOOD UREA NITROGEN 37 mg/dL (7-18)
[2017-06-02 08:38] LABS: ASPARTATE AMINO TRANSFERASE 42 U/L (15-37)
[2017-06-02] MEDS: SEVELAMER 800MG TABLET PO SCH ×3 (08:43→17:00)
[2017-06-02] MEDS: AMLODIPINE 5 MG TABLET PO SCH (08:43)
[2017-06-02] MEDS: FERROUS SULFATE 325 MG TABLET PO SCH ×2 (08:43→17:39)
[2017-06-02] MEDS: ERGOCALCIFEROL 50,000 UNIT CAPSULE PO SCH (08:43)
[2017-06-02] MEDS: FLUTICASONE NASAL SPRAY 16GM NAS SCH ×2 (08:44→20:17)
[2017-06-02] MEDS: SODIUM CHLORIDE FLUSH 10ML SYR IVF SCH ×2 (08:44→20:16)
[2017-06-02] MEDS: HYDROcodone/APAP 10/325 MG TABLET PO PRN (13:29)
[2017-06-02 14:35] VITALS: BP 146/92
[2017-06-02 20:00] VITALS: BP 137/82
[2017-06-02] MEDS: NICOTINE 14MG/24 HR PATCH.TD24 TD SCH (20:16)
[2017-06-02] MEDS: INSULIN DETEMIR 100 UNITS/ML, PEN SQ-INSULIN SCH (20:17)
[2017-06-03 02:50] VITALS: BP 128/78
[2017-06-03] MEDS: HEPARIN 5,000 UNITS/ML, 1ML SQ SCH ×3 (04:42→20:30)
[2017-06-03] MEDS: FLUOXETINE 10 MG CAP PO SCH ×3 (04:42→20:31)
[2017-06-03] MEDS: OLANZAPINE 5 MG TABLET PO SCH ×3 (04:42→20:30)
[2017-06-03 05:43] LABS: HEMATOCRIT 27.5 % (39.2-51.8); HEMOGLOBIN 9.3 g/dL (13.7-18.0); WHITE BLOOD COUNT 10.5 x10^3/uL (3.4-10)
[2017-06-03] MEDS: METOPROLOL TARTRATE 50 MG TABLET PO SCH ×2 (06:05→17:23)
[2017-06-03 06:07] LABS: BLOOD UREA NITROGEN 40 mg/dL (7-18)
[2017-06-03 06:08] LABS: ASPARTATE AMINO TRANSFERASE 39 U/L (15-37)
[2017-06-03] MEDS: FLUTICASONE NASAL SPRAY 16GM NAS SCH ×2 (08:17→20:31)
[2017-06-03] MEDS: FERROUS SULFATE 325 MG TABLET PO SCH ×2 (08:18→17:23)
[2017-06-03] MEDS: SEVELAMER 800MG TABLET PO SCH ×3 (08:18→17:23)
[2017-06-03] MEDS: SODIUM CHLORIDE FLUSH 10ML SYR IVF SCH ×2 (08:18→20:32)
[2017-06-03] MEDS: AMLODIPINE 5 MG TABLET PO SCH (08:19)
[2017-06-03] MEDS: INSULIN ASPART 100 UNITS/ML, PEN SQ-INSULIN SCH ×4 (08:21→20:32)
[2017-06-03 08:28] VITALS: BP 143/87
[2017-06-03] MEDS: HYDROcodone/APAP 10/325 MG TABLET PO PRN ×2 (11:35→18:46)
[2017-06-03 14:32] VITALS: BP 147/90
[2017-06-03 20:00] VITALS: BP 154/85
[2017-06-03] MEDS: INSULIN DETEMIR 100 UNITS/ML, PEN SQ-INSULIN SCH (20:31)
[2017-06-03] MEDS: NICOTINE 14MG/24 HR PATCH.TD24 TD SCH (20:31)
[2017-06-03] MEDS: ACETAMINOPHEN 325 MG TABLET PO PRN (20:32)
[2017-06-04 02:00] VITALS: BP 153/85
[2017-06-04] MEDS: HYDROcodone/APAP 10/325 MG TABLET PO PRN ×2 (02:48→13:04)
[2017-06-04] MEDS: FLUOXETINE 10 MG CAP PO SCH ×2 (04:00→11:09)
[2017-06-04] MEDS: HEPARIN 5,000 UNITS/ML, 1ML SQ SCH ×2 (04:00→11:10)
[2017-06-04] MEDS: OLANZAPINE 5 MG TABLET PO SCH ×2 (04:00→11:10)
[2017-06-04] MEDS: METOPROLOL TARTRATE 50 MG TABLET PO SCH (04:38)
[2017-06-04 06:09] LABS: ASPARTATE AMINO TRANSFERASE 48 U/L (15-37); BLOOD UREA NITROGEN 48 mg/dL (7-18)
[2017-06-04] MEDS ORDERED: MORP30TA3 PO (06:30)
[2017-06-04] MEDS ORDERED: OLAN5TAB9 PO (06:30)
[2017-06-04] MEDS ORDERED: ERGO500017 PO (06:30)
[2017-06-04] MEDS ORDERED: FERR-36 PO (06:30)
[2017-06-04] MEDS ORDERED: FLUO10CA7 PO (06:30)
[2017-06-04 06:45] VITALS: BP 137/84
[2017-06-04] MEDS: INSULIN ASPART 100 UNITS/ML, PEN SQ-INSULIN SCH ×3 (07:00→16:00)
[2017-06-04] MEDS: AMLODIPINE 5 MG TABLET PO SCH (07:53)
[2017-06-04] MEDS: FLUTICASONE NASAL SPRAY 16GM NAS SCH (07:53)
[2017-06-04] MEDS: FERROUS SULFATE 325 MG TABLET PO SCH (07:53)
[2017-06-04] MEDS: SEVELAMER 800MG TABLET PO SCH ×2 (07:53→11:09)
[2017-06-04] MEDS: ACETAMINOPHEN 325 MG TABLET PO PRN (08:05)
[2017-06-04] MEDS ORDERED: AMLO5TAB2 PO (08:17)
[2017-06-04] MEDS ORDERED: DARB60VI SQ (08:20)
[2017-06-04] MEDS ORDERED: METO50TA82 PO (08:20)
[2017-06-04] MEDS ORDERED: SEVE800T7 PO (08:20)
[2017-06-04] MEDS ORDERED: NICO-486 TD (08:20)
[2017-06-04] MEDS ORDERED: INSU100I28 SQ-INSULIN (08:20)
[2017-06-04] MEDS: SODIUM CHLORIDE FLUSH 10ML SYR IVF SCH (09:16)
[2017-06-04 12:58] VITALS: BP 162/92
[2017-06-04] MEDS ORDERED: LIDOCAINE 1%, 20ML ONE (13:54)
[2017-06-04] MEDS ORDERED: LIDOCAINE 2%, 20ML ONE (14:05)
== END 2017-06-04 16:47 | disposition home or self-care (01) | DRG 917 ==
LOC: ED 08:21 → EDIP 10:15 → 4EST 11:04 → DCLOUNGE 06-04 16:31
PROVIDERS: ADMIT Hospitalist; ATTEND Hospitalist
PROC: 02HV33Z Insertion of Infusion Device into Superior Vena Cava, Percutaneous Approach (ICD-10-PCS; principal; 2017-05-08)
PROC: B5181ZA Fluoroscopy of Superior Vena Cava using Low Osmolar Contrast, Guidance (ICD-10-PCS; 2017-05-08)
PROC: 5A1D70Z Performance of Urinary Filtration, Intermittent, Less than 6 Hours Per Day (ICD-10-PCS; 2017-05-08)
PROC: 5A1D70Z Performance of Urinary Filtration, Intermittent, Less than 6 Hours Per Day (ICD-10-PCS; 2017-05-09)
PROC: 5A1D70Z Performance of Urinary Filtration, Intermittent, Less than 6 Hours Per Day (ICD-10-PCS; 2017-05-10)
PROC: 5A1D70Z Performance of Urinary Filtration, Intermittent, Less than 6 Hours Per Day (ICD-10-PCS; 2017-05-12)
PROC: 5A1D70Z Performance of Urinary Filtration, Intermittent, Less than 6 Hours Per Day (ICD-10-PCS; 2017-05-13)
PROC: 5A1D70Z Performance of Urinary Filtration, Intermittent, Less than 6 Hours Per Day (ICD-10-PCS; 2017-05-14)
PROC: 5A1D70Z Performance of Urinary Filtration, Intermittent, Less than 6 Hours Per Day (ICD-10-PCS; 2017-05-15)
PROC: 5A1D70Z Performance of Urinary Filtration, Intermittent, Less than 6 Hours Per Day (ICD-10-PCS; 2017-05-16)
PROC: 5A1D70Z Performance of Urinary Filtration, Intermittent, Less than 6 Hours Per Day (ICD-10-PCS; 2017-05-17)
PROC: 5A1D70Z Performance of Urinary Filtration, Intermittent, Less than 6 Hours Per Day (ICD-10-PCS; 2017-05-18)
PROC: 5A1D70Z Performance of Urinary Filtration, Intermittent, Less than 6 Hours Per Day (ICD-10-PCS; 2017-05-20)
PROC: 5A1D70Z Performance of Urinary Filtration, Intermittent, Less than 6 Hours Per Day (ICD-10-PCS; 2017-05-22)
PROC: 5A1D70Z Performance of Urinary Filtration, Intermittent, Less than 6 Hours Per Day (ICD-10-PCS; 2017-05-24)
PROC: 5A1D70Z Performance of Urinary Filtration, Intermittent, Less than 6 Hours Per Day (ICD-10-PCS; 2017-05-27)
PROC: 5A1D70Z Performance of Urinary Filtration, Intermittent, Less than 6 Hours Per Day (ICD-10-PCS; 2017-05-29)
PROC: 0JH63XZ Insertion of Tunneled Vascular Access Device into Chest Subcutaneous Tissue and Fascia, Percutaneous Approach (ICD-10-PCS; 2017-05-29)
PROC: B5181ZA Fluoroscopy of Superior Vena Cava using Low Osmolar Contrast, Guidance (ICD-10-PCS; 2017-05-29)
PROC: 5A1D70Z Performance of Urinary Filtration, Intermittent, Less than 6 Hours Per Day (ICD-10-PCS; 2017-05-31)
PROC: 02PYX3Z Removal of Infusion Device from Great Vessel, External Approach (ICD-10-PCS; 2017-06-04)
DX: T40.2X2A Poisoning by other opioids, intentional self-harm, initial encounter (principal); A41.9 Sepsis, unspecified organism; K72.00 Acute and subacute hepatic failure without coma; R65.20 Severe sepsis without septic shock; J15.9 Unspecified bacterial pneumonia; F10.231 Alcohol dependence with withdrawal delirium; N17.9 Acute kidney failure, unspecified; E11.40 Type 2 diabetes mellitus with diabetic neuropathy, unspecified; D75.1 Secondary polycythemia; E86.0 Dehydration; E87.1 Hypo-osmolality and hyponatremia; E11.65 Type 2 diabetes mellitus with hyperglycemia; E83.39 Other disorders of phosphorus metabolism; D50.9 Iron deficiency anemia, unspecified; T42.4X2A Poisoning by benzodiazepines, intentional self-harm, initial encounter; F32.9 Major depressive disorder, single episode, unspecified; E78.5 Hyperlipidemia, unspecified; E83.51 Hypocalcemia; E87.5 Hyperkalemia; E87.6 Hypokalemia; F12.20 Cannabis dependence, uncomplicated; F15.21 Other stimulant dependence, in remission; G89.29 Other chronic pain; R09.02 Hypoxemia; T79.6XXA Traumatic ischemia of muscle, initial encounter; X58.XXXA Exposure to other specified factors, initial encounter; M19.042 Primary osteoarthritis, left hand; M19.041 Primary osteoarthritis, right hand; F39 Unspecified mood [affective] disorder; M51.26 Other intervertebral disc displacement, lumbar region; E79.0 Hyperuricemia without signs of inflammatory arthritis and tophaceous disease; E87.70 Fluid overload, unspecified; I10 Essential (primary) hypertension; G93.89 Other specified disorders of brain; T50.995A Adverse effect of other drugs, medicaments and biological substances, initial encounter; E55.9 Vitamin D deficiency, unspecified; F17.210 Nicotine dependence, cigarettes, uncomplicated; G25.81 Restless legs syndrome; N40.1 Benign prostatic hyperplasia with lower urinary tract symptoms; R33.8 Other retention of urine; R39.15 Urgency of urination; Z71.6 Tobacco abuse counseling; Z99.2 Dependence on renal dialysis; Z91.5 Personal history of self-harm; Z91.15 Patient's noncompliance with renal dialysis; Z87.828 Personal history of other (healed) physical injury and trauma; Z79.899 Other long term (current) drug therapy; Z88.0 Allergy status to penicillin; Y92.89 Other specified places as the place of occurrence of the external cause
CPT/HCPCS: 36415; 36556; 36558; 36589; 36600; 70450; 71010; 71275; 76770; 76937; 77001; 80048; 80053; 80069; 80076; 80307; 80329; 81001; 82140; 82150; 82306; 82550; 82728; 82803; 82962; 83036; 83540; 83550; 83605; 83690; 83735; 83930; 83970; 84100; 84484; 84550; 85025; 85045; 85610; 86480; 86704; 86706; 86708; 86803; 87040; 87086; 87340; 93005; 94640; 96361; 96365; 96375; 99156; 99157; C1894; J0610; J0696; J0881; J1644; J1815; J2250; J2997; J3010; J3490; J7070; J7613; Q9967; C1750; C1751; G0479; G0480; J1200; J1630; J1642; J2060; J2270; J2310; J7030

== ENCOUNTER 2017-09-23 10:09 | Emergency (ER) | payer MEDICARE ==
[~2017-09-23] VITALS: Ht 170.2 cm; Wt 75.0 kg
[~2017-09-23 10:09] MED LIST: ACET-709 PO; AMLO5TAB2 PO; ATOR-2 PO; CITA40TA5 PO; CLIN300C8 PO; CYCL5TAB PO; DARB60VI SQ; DIAZ5TAB4 PO; ERGO500017 PO; FENO160T PO; FERR-51 PO; FLUO10CA7 PO; INSU100I28 SQ-INSULIN; METO50TA82 PO; MORP30TA3 PO; NICO-486 TD; OLAN5TAB9 PO; QUET100T PO; SEVE800T7 PO; TRAZ150T62 PO; VALA500T PO
[2017-09-23 13:27] VITALS: BP 115/80
== END 2017-09-23 15:47 ==
LOC: ED 11:33
DX: S43.102A Unspecified dislocation of left acromioclavicular joint, initial encounter (principal); E11.9 Type 2 diabetes mellitus without complications; W06.XXXA Fall from bed, initial encounter; Y93.89 Activity, other specified; Y92.89 Other specified places as the place of occurrence of the external cause; Y99.9 Unspecified external cause status
CPT/HCPCS: 99285